=== PATIENT | male | born 1985 | race African-American/Black ===

== ENCOUNTER 2017-09-07 13:58 | Emergency (ER) | payer OTHER ==
[~2017-09-07] VITALS: Ht 188 cm; Wt 105.2 kg
[2017-09-07 14:44] VITALS: BP 159/103
== END 2017-09-07 15:10 | disposition home or self-care (01) ==
LOC: ER 13:58
DX: L25.9 Unspecified contact dermatitis, unspecified cause (principal)

== ENCOUNTER 2018-01-07 02:15 | Emergency (ER) | payer OTHER ==
[~2018-01-07] VITALS: Ht 188 cm; Wt 106.6 kg
[2018-01-07] MEDS ORDERED: cefTRIAXone SOD 1,000 MG VL IM ONE (08:00)
[2018-01-07 08:17] VITALS: BP 180/100
== END 2018-01-07 08:29 | disposition home or self-care (01) ==
LOC: ER 02:17
DX: R59.1 Generalized enlarged lymph nodes (principal); F12.10 Cannabis abuse, uncomplicated
CPT/HCPCS: 70490; 96372; 99284; J0696

== ENCOUNTER → 2019-09-02 | Emergency (ER) | payer OTHER ==
[~2019-09-02] VITALS: Ht 188 cm; Wt 97.5 kg
[2019-09-02 07:00] VITALS: BP 158/112
== END | disposition home or self-care (01) ==
LOC: ER 06:17
DX: S80.02XA Contusion of left knee, initial encounter (principal); S80.01XA Contusion of right knee, initial encounter; M25.512 Pain in left shoulder; M79.642 Pain in left hand; V86.96XA Unspecified occupant of dirt bike or motor/cross bike injured in nontraffic accident, initial encounter; Y93.89 Activity, other specified; Y92.89 Other specified places as the place of occurrence of the external cause; Y99.8 Other external cause status
CPT/HCPCS: 72131; 73030; 73130; 73562